=== PATIENT | male | born 1970 | race Caucasian/White ===

== ENCOUNTER 2021-08-11 05:13 | Day surgery (SDC) | payer OTHER ==
[2021-08-05 16:33] VITALS: BMI 31.0
[2021-08-11 09:07] VITALS: TEMP 98.2
[2021-08-11 11:06] VITALS: BP 128/77; PULSE 57
== END 2021-08-11 11:16 | disposition home or self-care (01) ==
LOC: JASU-ENDO 05:13
PROVIDERS: ATTEND Internal Medicine Gastroenterology
PROC: 0DJD8ZZ Inspection of Lower Intestinal Tract, Via Natural or Artificial Opening Endoscopic (ICD-10-PCS; principal; 2021-08-11 10:00)
DX: Z12.11 Encounter for screening for malignant neoplasm of colon (principal); Z80.0 Family history of malignant neoplasm of digestive organs